=== PATIENT | male | born 1945 ===

== ENCOUNTER 2022-11-30 10:06 | Inpatient (IN) | payer OTHER ==
[~2022-11-30] VITALS: Ht 172.7 cm; Wt 63.5 kg
[2022-11-30] MEDS ORDERED: GLUMETZA1000 MG PO (14:44)
[2022-11-30] MEDS ORDERED: GLIPIZIDE XL2.5 MG PO (14:44)
[2022-11-30] MEDS ORDERED: COZAAR25 MG PO (14:44)
[2022-11-30] MEDS ORDERED: ATORVASTATIN CA20 MG PO (14:45)
[2022-12-07] MEDS ORDERED: GLIPIZIDE5 MG (07:57)
[2022-12-07] MEDS ORDERED: HYDROCHLOROTH12.5 MG (07:57)
[2022-12-07] MEDS ORDERED: ATORVASTATIN CA40 MG (07:57)
== END 2022-12-07 12:06 | disposition home or self-care (01) | DRG 334 ==
LOC: SURG 12-06 08:24 → O/R 12-06 08:24 → SURG 12-06 08:30
PROVIDERS: ADMIT Surgery; ATTEND Surgery
PROC: 0DJD8ZZ Inspection of Lower Intestinal Tract, Via Natural or Artificial Opening Endoscopic (ICD-10-PCS; 2022-12-06)
PROC: 3E0T3BZ Introduction of Anesthetic Agent into Peripheral Nerves and Plexi, Percutaneous Approach (ICD-10-PCS; 2022-12-06)
PROC: 0DBP4ZZ Excision of Rectum, Percutaneous Endoscopic Approach (ICD-10-PCS; principal; 2022-12-06 08:30)
DX: D12.8 Benign neoplasm of rectum (principal); Z20.822 Contact with and (suspected) exposure to COVID-19
CPT/HCPCS: 0184T; 45130; 45300; 64430

== ENCOUNTER 2025-07-15 09:00 | Day surgery (SDC) | payer OTHER ==
[2025-07-06 10:19] VITALS: BP 150/74
[~2025-07-15] VITALS: Ht 172.7 cm; Wt 63.5 kg
[~2025-07-15 09:00] MED LIST: ATORVASTATIN CA20 MG PO; ATORVASTATIN CA40 MG; BUPIVACAINE HCL/Mpf 0.5% 10ML VIAL ONE; CEFTRIAXONE SODIUM 2,000 MG VIAL ONE; COZAAR25 MG PO; DIBUCAINE 30 GM TUBE ONE; GLIPIZIDE XL2.5 MG PO; GLIPIZIDE5 MG; GLUMETZA1000 MG PO; HYDROCHLOROTH12.5 MG; LIDOCAINE HCL 1%/EPINEPHRINE 20ML VIAL IJ ONE; METFORMIN HCL1000 M2 PO; METRONIDAZOLE/SODIUM CHLORIDE 500 MG/100 ML PIGGYBACK IV ONE; POVIDONE-IODINE 118 ML BOTT TOP ONE
[2025-07-15] MEDS ORDERED: OXYCODONE HCL5 MG PO (10:14)
[2025-07-15] MEDS ORDERED: TAMSULOSIN HCL 0.4 MG CAP PO ONE ×2 (10:15→11:14)
== END 2025-07-15 13:50 | disposition home or self-care (01) ==
LOC: CIR.AMB 09:00
PROVIDERS: ATTEND Surgery
DX: D12.8 Benign neoplasm of rectum (principal); K62.89 Other specified diseases of anus and rectum